=== PATIENT | male | born 1950 | race Caucasian/White ===

== ENCOUNTER 2022-02-12 09:28 | Inpatient (IN) | payer OTHER ==
[~2022-02-12] VITALS: Ht 177.8 cm; Wt 82.1 kg
[~2022-02-12 09:28] MED LIST: Atarax10 MG PO; CRUTCH USE; LEVSOD137 PO; OXYC20ER PO; Prozac20 MG PO
--- NOTE | 2022-02-12 16:15 | NUR ---
ARRIVED TO UNIT IN BED. AQUACEL TO R SHOULDER & SLING IN PLACE. PATIENT ABLE TO WIGGLE FINGERS & HAS FULL SENSATION TO R HAND. DENIES N/T T/O REST OF BODY. VSS ON RA.
--- NOTE | 2022-02-12 19:14 | NUR ---
NO ACUTE CHANGES SINCE ARRIVAL TO UNIT. TOLERATING PO INTAKE WELL & VOIDED. 1 PERSON ASSIST TO BR W/ GB, PT DID VERY WELL. WILL REPORT TO ONCOMING RN.
--- NOTE | 2022-02-13 04:31 | NUR ---
SHIFT SUMMARY PT HAS SLEPT OFF AND ON. PT HAS MODERATE PAIN THIS SHIFT, MEDICATED PER EMAR. POD O RIGHT SHOULDER REPLACEMENT. AQUACEL DRESSING IN PLACE, C/D/I. PT REPORTS SOME TINGLING IN HANDS BUT DENIES NUMBESS. PT REMOVED SLING BRIEFLY AT ONE POINT MIDSHIFT DESPITE EDUCATION. PT REMINDED OF THE IMPORTANCE OF WEARING SLING AND IS COMPLIANT AT THIS TIME. POST OP VITALS STABLE. PT HAS BEEN UP AND AMBULATING THIS SHIFT. NO ACUTE CHANGES OVERNIGHT. BED IN LOWEST POSITION, CALL LIGHT WITHIN REACH.
[2022-02-13] MEDS ORDERED: Percocet 5-3251 EACH PO (09:34)
[2022-02-13] MEDS ORDERED: ASPI81CH PO (09:35)
--- NOTE | 2022-02-13 10:35 | NUR ---
DISCHARGE SUMMARY: PT ALERT AND ORIENTED. VSS. RA. ZEINA PO. AMBULATING SBA. VOIDING. DC INSTRUCTIONS PROVIDED. PT REPORTED UNDERSTANDING THOSE INSTRUCTIONS. LEFT FLOOR TO GO HOME WITH HIS BROTHER, WITH ALL PERSONAL POSSESSIONS, DC PACKET AND 1 NARC RX AND 1 ASA RX. IV DC'D.
== END 2022-02-13 10:15 | disposition home or self-care (01) | DRG 483 ==
LOC: MEDS 09:28 → SURS 09:28 → PRE IP 09:28 → SURS 16:14 → MEDS 16:14 → SURS 17:29
PROVIDERS: ADMIT Orthopaedic Surgery
PROC: 0RRJ00Z Replacement of Right Shoulder Joint with Reverse Ball and Socket Synthetic Substitute, Open Approach (ICD-10-PCS; principal; 2022-02-12 11:00)
DX: M19.011 Primary osteoarthritis, right shoulder (principal); Z87.891 Personal history of nicotine dependence; F32.A Depression, unspecified; Z98.890 Other specified postprocedural states; Z88.5 Allergy status to narcotic agent; Z88.0 Allergy status to penicillin
CPT/HCPCS: 73030; 97110; 97161; 97165; A9270; C1776; J0171; J0690; J0735; J1100; J1885; J2250; J2370; J2405; J2704; J2710; J2795; J3010; J7120

== ENCOUNTER 2024-08-23 06:05 | Day surgery (SDC) | payer OTHER ==
[2024-08-23] VITALS (12 sets, daily range): BP systolic 93–125; BP diastolic 60–78
[~2024-08-23] VITALS: Ht 177.8 cm; Wt 89.2 kg
[~2024-08-23 06:05] MED LIST changes: +ASPI81CH PO; +METPHE10 PO; +OXYCODONE PO; +PARO10 PO; +Percocet 5-3251 EACH PO
[2024-08-23] MEDS ORDERED: Lactated Ringer's 1,000 ML IV SCH ×2 (06:50→07:45)
[2024-08-23] MEDS ORDERED: OxyCODONE HCL 10 MG TABCR PO SCH (06:50)
[2024-08-23] MEDS ORDERED: Ropivacaine 0.5% HCl/Pf 123.125 MG,EPINEPHrine HCL 0.25 MG,Ketorolac Tromethamine 15 MG... INFIL SCH (06:50)
[2024-08-23] MEDS ORDERED: Acetaminophen 500 MG Tab PO SCH ×2 (06:50→16:00)
[2024-08-23] MEDS ORDERED: CeFAZolin Sodium 2,000 MG in NS 100 ML IV SCH ×2 (06:50→15:45)
[2024-08-23] MEDS ORDERED: Chlorhexidine Mouth Care 15 ML UDC MT SCH (06:50)
[2024-08-23] MEDS ORDERED: Tranexamic Acid 100 ML IV SCH (06:54)
[2024-08-23] MEDS ORDERED: propofoL 40 ML IV ONE (07:24)
[2024-08-23] MEDS ORDERED: FentaNYL Citrate 50 MCG/ML 2 ML Injection ONE (07:24)
[2024-08-23] MEDS ORDERED: Midazolam HCl 1MG / ML 2ML Vial ONE ×2 (07:24→07:50)
--- NOTE | 2024-08-23 07:25 | NUR ---
History, Chart, Medications and Allergies reviewed before start of procedure. Pre-Op teaching done. Pt verbalizes understanding. Patient confirms NPO status and agrees with scheduled surgery. PT BELONGINGS PLACED IN BAG UNDER BED.
[2024-08-23] MEDS ORDERED: Promethazine HCl 25 MG Tab PO PRN (07:35)
[2024-08-23] MEDS ORDERED: HYDROmorphone HCl/Pf 1MG SYR IV PRN (07:40)
[2024-08-23] MEDS ORDERED: DiphenhydrAMINE HCL 25 MG Cap PO PRN (07:40)
[2024-08-23] MEDS ORDERED: Bisacodyl 10 MG Supp PR PRN (07:40)
[2024-08-23] MEDS ORDERED: FLU VACC TS2024-25(6MOS UP)/PF 45 MCG/0.5 ML SYRINGE IM SCH (07:40)
[2024-08-23] MEDS ORDERED: Metoclopramide HCl 5MG / ML 2ML Vial IV PRN (07:45)
[2024-08-23] MEDS ORDERED: Magnesium Hydroxide Conc 10 ML UDC PO PRN (07:45)
[2024-08-23] MEDS ORDERED: OxyCODONE HCL 5 MG TAB PO PRN ×2 (07:45)
[2024-08-23] MEDS ORDERED: Ondansetron HCl 2 MG / ML 2ML Vial IV PRN (07:45)
[2024-08-23] MEDS ORDERED: ePHEDrine Sulfate 50 MG/ML 1ML Injection ONE (07:53)
--- NOTE | 2024-08-23 08:28 | NUR ---
08/23/24 0828 Natalia Paula SPINAL BLOCK COMPLETED BY UPON ENTRY TO OR.
[2024-08-23] MEDS ORDERED: Phenylephrine HCl 10mg/ml 1 ml Vial ONE (08:54)
--- NOTE | 2024-08-23 10:17 | NUR ---
PT ARRIVED TO ROOM VIA HOSPITAL BED. R KNEE INCISION COVERED WITH AQUACEL, C/D/I. WIGGLES TOES AND FEELS SOME SENSATION TO TOUCH. PPP. VSS. A&O X4. DENIES TINGLING. DENIES N/V. BED IN LOWEST POSITION, CALL LIGHT WITHIN REACH, WATER AND SNACKS AT BEDSIDE.
[2024-08-23] MEDS ORDERED: Ketorolac Tromethamine 15mg Vial IV SCH (12:00)
[2024-08-23] MEDS ORDERED: OXYC5 PO (15:17)
[2024-08-23] MEDS ORDERED: ASPI81CH PO (15:17)
[2024-08-23] MEDS ORDERED: ACET500 PO (15:17)
--- NOTE | 2024-08-23 15:53 | NUR ---
DISCHARGE NOTE POD 0 RTKA. INCISION SITE C/D/I COVERED WITH AQUACEL. EATING/DRINKING/VOIDING WITHOUT DIFFICULTY. WORKED AND CLEARED BY PHYSICAL THERAPY. VERBALIZED UNDERSTANDING OF DISCHARGE INSTRUCTIONS. SENT HOME WITH EXTRA DRESSINGS. WHEELED OUT TO BROTHERS CAR VIA WHEELCHAIR. VSS. A&O X4. EAGER TO DISCHARGE HOME.
[2024-08-23] MEDS ORDERED: Docusate Sodium 100 MG Cap PO SCH (21:00)
[2024-08-24] MEDS ORDERED: Levothyroxine Sodium 0.137 MG Tab PO SCH (06:00)
[2024-08-24] MEDS ORDERED: Methylphenidate HCL 10 MG TAB PO SCH (09:00)
[2024-08-24] MEDS ORDERED: Aspirin 81 MG Chew PO SCH (09:00)
[2024-08-24] MEDS ORDERED: PARoxetine HCl 10 MG Tab PO SCH (09:00)
== END 2024-08-23 15:50 | disposition home or self-care (01) ==
LOC: ORSCMMR 06:05 → SURS 09:52 → ORSCMMR 15:50
PROVIDERS: Orthopaedic Surgery
PROC: 8E0Y0CZ Robotic Assisted Procedure of Lower Extremity, Open Approach (ICD-10-PCS; principal; 2024-08-23 07:30)
PROC: 0SRC0JA Replacement of Right Knee Joint with Synthetic Substitute, Uncemented, Open Approach (ICD-10-PCS; principal; 2024-08-23 07:30)
DX: M17.11 Unilateral primary osteoarthritis, right knee (principal); E03.9 Hypothyroidism, unspecified; Z79.899 Other long term (current) drug therapy
CPT/HCPCS: 27447; 0055T; 73560-RT; 97110; 97162; 97530; A9270; C1713; C1776; J0171; J0690; J0735; J1885; J2250; J2371; J2704; J2795; J3010; J7120

== ENCOUNTER → 2024-11-02 | Outpatient (CLI) | payer OTHER ==
[~2024-11-02] MED LIST changes: +ACET500 PO; +OXYC5 PO
[2024-11-02 16:49] LABS: BASOPHILS ABSOLUTE AUTO 0.05 K/mm3 (0.00-0.23); BASOPHILS PERCENT AUTO 1 % (0-2); EOSINOPHILS ABSOLUTE AUTO 0.35 K/mm3 (0.00-0.68); EOSINOPHILS PERCENT AUTO 4 % (0-6); Hematocrit 39.2 % (37.0-53.0); Hemoglobin 12.3 g/dL (13.5-17.5); IMMATURE GRAN ABSOLUTE AUTO 0.02 K/mm3 (0.00-0.10); IMMATURE GRAN PERCENT AUTO 0 % (0-1); LYMPHOCYTES ABSOLUTE AUTO 2.99 K/mm3 (0.84-5.20); LYMPHOCYTES PERCENT AUTO 31 % (21-46); MONOCYTES ABSOLUTE AUTO 1.01 K/mm3 (0.16-1.47); MONOCYTES PERCENT AUTO 10 % (4-13); Mean Corpuscular HGB 27.2 pg (26.0-34.0); Mean Corpuscular HGB Conc 31.4 g/dL (31.5-36.5); Mean Corpuscular Volume 87 fL (80-100); Mean Platelet Volume 10.8 fL (9.1-12.4); NEUTROPHILS PERCENT AUTO 55 % (41-73); Platelet Count 282 K/mm3 (150-400); RDW Coefficient Variation 15.1 % (11.7-14.2); RDW Standard Deviation 48.2 fL (35.1-46.3); Red Blood Cell Count 4.53 M/mm3 (4.30-5.90); White Blood Cell Count 9.72 K/mm3 (4.00-11.30)
== END ==
LOC: LAB SHORT 15:06 → LAB 15:06
PROVIDERS: Physician Assistant
DX: E03.9 Hypothyroidism, unspecified (principal); M17.9 Osteoarthritis of knee, unspecified; M54.9 Dorsalgia, unspecified
CPT/HCPCS: 85025; 85651